=== PATIENT | female | born 1950 | race Caucasian/White ===

== ENCOUNTER 2023-09-02 13:10 | Emergency (ER) | payer OTHER, SELFPAY ==
--- NOTE | ~2023-09-02 | CT_ITS ---
EXAMINATION: CT ABDOMEN AND PELVIS WITHOUT CONTRAST CLINICAL INFORMATION: Right hip/pelvic pain. Fall. Rule out fracture. COMPARISON: None available. TECHNIQUE: Multidetector volumetric imaging was performed from the superior aspect of the liver through the pubic symphysis. Sagittal and coronal reformatted images were obtained on the technologist's workstation. This CT examination was performed using dose optimization techniques as appropriate, variously including the following: *Automated exposure control *Adjustment of mA and/or kV according to patient size (this includes techniques or standardized protocols for targeted exams where dose is matched to indication/reason for exam; i.e. extremities or head) *Use of iterative reconstruction technique DLP: 368 mGy-cm FINDINGS: LUNG BASES: The visualized lung bases are unremarkable. LIVER, GALLBLADDER, AND BILIARY TREE: The liver is normal in size, shape, and attenuation. Innumerable small low-attenuation liver lesions probably representing small cysts for biliary hamartomas 3 No biliary ductal dilatation is present. The gallbladder is unremarkable with no evidence of radiopaque gallstones, gallbladder wall thickening, or obvious pericholecystic inflammatory changes. PANCREAS: Unremarkable. SPLEEN: Unremarkable. ADRENAL GLANDS: Unremarkable. KIDNEYS AND URETERS: The kidneys are normal in size, shape, and attenuation. No hydronephrosis, hydroureter, or calculi seen. No perinephric stranding. BLADDER: Unremarkable. GASTROINTESTINAL TRACT: There is question of wall thickening of the terminal ileum. Small and large bowel is otherwise The appendix is unremarkable. ABDOMINAL WALL: No significant hernia is appreciated. LYMPH NODES: Small, small bowel nodes in the right lower quadrant. No enlarged lymph nodes. VASCULAR: Atherosclerotic disease. PELVIC VISCERA: Unremarkable. OSSEOUS STRUCTURES: No fracture. There is sacralization of the right L5 transverse process. There are degenerative changes of the spine. CT/CT abdomen pelvis wo IV con IMPRESSION: No kidney stone or hydronephrosis. Question wall thickening of the terminal ileum. Innumerable low-attenuation subcentimeter liver lesions probably representing cysts or biliary hamartomas. No pelvic or hip fracture. Fleischner guidelines were followed.
--- NOTE | ~2023-09-02 | US_ITS ---
EXAMINATION: US VENOUS ULTRASOUND WITH DOPPLER LOWER EXTREMITY, RIGHT CLINICAL INFORMATION: Swelling COMPARISON: None available. TECHNIQUE: Ultrasound of the deep veins is performed from the hip to the calf with compression sonography and color and pulse Doppler assessment. Spectral analysis with color-flow imaging is performed. FINDINGS: There is normal venous compression and respiratory variation and augmented flow. The visualized common femoral vein, superficial femoral vein, profunda femoral vein, popliteal vein, and the trifurcation region shows no evidence of deep venous thrombosis. There is no significant popliteal fossa cyst. US/US venous duplex LE RT IMPRESSION: No DVT demonstrated in the right lower extremity.
[2023-09-02 13:27] VITALS: BP 184/87; PULSE 86; RESP 16; TEMP 36.8; O2SAT 96; BMI 25.4
--- NOTE | 2023-09-02 13:37 | ED.GENADULT ---
HPI - General Adult General Chief complaint: Extremity Injury, Lower Stated complaint: Hip pain - fall on 08/22/23 Time Seen by Provider: 09/02/23 15:38 Source: patient Mode of arrival: ambulatory Limitations: no limitations History of Present Illness HPI narrative: 72 year old female with no significant pmhx presents to the ED today for evaluation of right hip pain/ discomfort s/p trip and fall 10 days ago. Reports ambulating from her couch over to her window and tripping on her 3 lb dumbbells, causing her to fall to her right side into the wall. Denies head strike or LOC. She was able to stand and ambulate without difficulty or pain. 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 Pain is located to the right lateral hip and extends down the right thigh to her right knee. This is exacerbated with bearing weight on her right leg. She has been alternating Tylenol and ibuprofen with temporary relief of pain. Has also been icing the right hip which helps. Not on AC. Denies fever, chills, nausea/vomiting, abdominal pain, dysuria, hematuria, flank pain, numbness/tingling/weakness down extremities, saddle anesthesia, bowel or bladder incontinence or retention, or back pain. Related Data Previous Rx's Medication Instructions Recorded baclofen 5 mg tablet 5 mg PO BEDTIME PRN muscle spasm 09/02/23 #10 tabs lidocaine 5 % topical patch 1 patch topical DAILY #15 ea 09/02/23 (Lidoderm) naproxen 500 mg tablet 500 mg PO Q8-12H PRN pain (scale 09/02/23 score 4-6) #14 tabs Allergies Allergy/AdvReac Type Severity Reaction Status Date / Time Penicillins Allergy Unknown Verified 09/02/23 13:35 Review of Systems Review of Systems: Constitutional: No fever, chills, fatigue, night sweats, weight changes ENT/Mouth: No ear pain, hearing loss, nasal congestion, sinus pain, rhinorrhea, sore throat Eyes: No eye pain, swelling, redness, vision changes, discharge Cardio: No chest pain, palpitations, SEARS, orthopnea, peripheral edema Pulm: No SOB, cough, sputum, wheezing, dyspnea, hemoptysis GI: No nausea, vomiting, hematemesis, abdominal pain, diarrhea, constipation, hematochezia, melena : No irregular bleeding, dysuria, frequency, urgency, hesitancy, hematuria, flank pain, urinary flow changes, urinary incontinence or retention MSK: +right hip pain, No back pain, neck pain, joint pain, myalgias Skin: No lesions, rashes Neuro: No weakness, numbness, paresthesias, LOC, dizziness, headache All other systems reviewed and are negative. [facility] Past Medical History Attestation statement: The following information was validated with the patient. Source: old records reviewed and nursing notes reviewed Social History Social History Smoked in Last 30 Days: Yes Use of substances other than those prescribed or required for medical reasons: No Advance Directives: No Advance Directives Information Provided: No Physical Exam ED Vital Signs: Vital Signs - 24 hr 09/02/23 13:27 09/02/23 14:44 Temperature 98.3 F Pulse Rate 86 75 Respiratory Rate 16 12 Blood Pressure 184/87 H 189/84 H Pulse Oximetry 96 Oxygen Delivery Method Room Air BMI result Body Mass Index 25.4 Patient hypertensive, vitals otherwise wnl Const General: cooperative, healthy appearing, comfortable, no acute distress, alert, awake and Physically active Orientation/consciousness: patient oriented x3 HENMT Head: Yes normal to inspection, Yes normocephalic and Yes atraumatic Eyes General: appearance normal, both eyes and all related structures Conjunctivae: conjunctivae normal Sclerae: sclerae normal Pupils: Equal, round and reactive pupils present EOM: EOMs intact bilaterally Neck Neck: Yes normal visual inspection and Yes full ROM Resp Effort & Inspection: normal respiratory effort and symmetric chest movement Auscultation: clear to auscultation bilaterally Cardio Other: 2+ popliteal, DP/PT pulses b/l Rate: regular rate Rhythm: regular rhythm GI Inspection: Yes normal to inspection Palpation (GI): Soft to palpation and nontender General: Yes no CVA tenderness Back/Spine/Pelvis Other: + Ambulating with antalgic gait. Intact ROM to right hip with pain on passive extension. No palpable deformity or pain over the right ASIS, sciatic notch or pubic symphisis. negative straight leg raise. Back: no CVA tenderness Skin General skin exam: no rashes or lesions noted Neuro Other: No saddle anesthesia.?Sensation intact to light touch.? Neurovascular intact distally.? General: patient oriented x3 and gait normal Cranial nerves: Yes Equal, round and reactive pupils present Gait exam (Neuro): Normal gait present Extrem General: Yes normal to inspection, Yes full ROM, Yes no clubbing, cyanosis or edema and Yes no calf tenderness Course Course Course Narrative: RME: 72-year-old female presents to ED for right hip pelvic pain since fall on the 22 of August. Patient has been using ice to help with the pain. Patient able to walk but with pain. Patient states right hip pelvic pain radiating down right thigh. Patient denies any blue black discoloration, thigh swelling, redness, calf pain, chest pain, or shortness of breath. Patient denies any genitourinary symptoms. Patient states for abdominal CT scan dry to check for hip fracture kidney stones, pubic rami fracture. Ultrasound right lower extremity ordered to make sure no blood clot. UA ordered. Reevaluation(s) Reevaluation #1: 1800-- Venous duplex of RLE does not demonstrate acute clot. CT abd/pelvis is negative for acute hip fracture or dislocation. It does not demonstrate hydro or nephrolithiasis. It does show some wall thickening of the terminal ileum however patient does not complain of abdominal pain or bowel/bladder symptoms. Abd is NT/ND. I do not suspect abdominal pathology such as IBS, IBD, etc. Additionally CT shows possibly billary cysts vs hamartomas > informed patient of results and advised to f/u with PCP regarding these findings. UA showing small amount of blood which may be indicative of possible passage of renal stone. UA negative for infection. >> On re-evaluation of patient, she reports significant improvement in pain with baclofen, toradol and lido patch. She has been ambulating to the bathroom with steady gait and decreased pain on weight bearing. Informed her of work up results. Pain is likely muscular in nature. Will send scripts to pharmacy for pain and advised her to follow up with pcp. Discussed worrisome signs and symptoms and when to return to the ED. All questions answered at this t sandra.Patient has remained stable throughout ED visit today. Patient is agreeable with disposition and stable for discharge. Medications Administered Discontinued Medications Generic Name Dose Route Start Last Admin Trade Name Freq PRN Reason Stop Dose Admin Baclofen 10 mg 09/02/23 16:38 09/02/23 16:47 Baclofen 10 Mg Tablet PO 09/02/23 16:39 10 mg ONCE ONE Administration Ketorolac Tromethamine 30 mg 09/02/23 16:38 09/02/23 16:47 Ketorolac Tromethamine 30 Mg/Ml Vial IM 09/02/23 16:39 30 mg ONCE ONE Administration Lidocaine 1 patch 09/02/23 16:38 09/02/23 16:46 Lidocaine 4 % Patch Adh..Patch TRANSDERMA 09/02/23 16:39 1 patch ONCE ONE Administration Protocol Medical Decision Making Medical Decision Making [facility] Narrative: 72 year old female with no significant pmhx presents to the ED today for evaluation of right hip pain/ discomfort s/p trip and fall 10 days ago. Patient hypertensive, otherwise wnl. Patient is nontoxic appearing and in NAD. Ambulating with antalgic gait. Intact ROM to right hip with pain on passive extension. No palpable deformity or pain over the right ASIS, sciatic notch or pubic symphisis. NV intact distally. Concern for msk sprain/ strain, sciatica. Unlikely fracture, dislocation, disc herniation, cord compression, cauda equina, Guillain-Dillwyn, epidural abscess, NV compromise, compartment syndrome, threat to limb. Plan for imaging and pain control. Differential Diagnosis Differential Diagnoses: The differential diagnosis associated with the presentation includes as above Admission/Observation Not indicated. Lab Data [facility] Lab Attestation statement: I reviewed the patient's lab results. as above Labs: Lab Results 09/02/23 Range/Units 14:46 Urine Color Yellow Urine Appearance Clear Urine pH 5.5 (5.0-9.0) Ur Specific Thayer 1.010 (1.005-1.025) Urine Protein Negative (Neg-Trace) mg/dL Urine Glucose (UA) Negative (Negative) mg/dL Urine Ketones Negative (Negative) mg/dL Urine Blood Small (1+) H (Negative) Urine Nitrite Negative (Negative) Ur Leukocyte Esterase Trace H (Negative) Urine RBC 0-2 (0-2) /HPF Urine WBC 0-5 (0-5) /HPF Ur Squamous Epith Cells 3-5 (0-2) /HPF Urine Bacteria None Seen (None Seen) Hyaline Casts 0-2 (0-2) /LPF Independent Interpretation I performed an independent interpretation of an: Ultrasound and CT Scan Interpretation: I have personally reviewed CT abdomen/pelvis and agree with radiologist's interpretation. I have personally reviewed venous duplex US RT LE and agree with radiologist's interpretation. Radiology Impression Discussion of test interpretation with radiology: I have reviewed the radiologist's reading. Radiologist Impression: US venous duplex LE RT IMPRESSION: No DVT demonstrated in the right lower extremity. CT abdomen pelvis wo IV con IMPRESSION: No kidney stone or hydronephrosis. Question wall thickening of the terminal ileum. Innumerable low-attenuation subcentimeter liver lesions probably representing cysts or biliary hamartomas. No pelvic or hip fracture. Fleischner guidelines were followed. External Record Review External record reviewed: Inpatient record Prescription Management I considered prescription management with: Pain Medication and Other (Muscle relaxer, steroid) Social Determinants Patient?s care significantly limited by Social Determinants of Health including: Other Social Determinant of Health Discharge Plan Discharge Clinical Impression: Acute pain of right hip, Strain of right hip Patient Disposition: Home, Self-Care Instructions: Arthralgia (ED), Hip Pain (ED) Additional Instructions: Your imaging studies today do not show acute fracture or dislocation. The ultrasound of your right lower extremity does not demonstrate clot. Your urine was negative for infection. Your pain is likely musculoskeletal as it improved with medications today. Please rest the leg. Use ice several times per day for 20 minutes at a time for the next 48 hours and then change to heat. Baclofen is a muscle relaxer. Take this at night as it makes you drowsy. Do not drive, drink alcohol, or operate machinery while taking it. Naproxen is an anti-inflammatory / pain medication. Take with food. Do not take this with Ibuprofen. Lidoderm patches are numbing patches. Apply to painful areas. In addition you may take Tylenol at home. Follow up with your primary care provider as needed If your pain worsens, if you develop new numbness, tingling, weakness, loss of bowel or bladder function call 911 or return to the ER immediately for evaluation. Prescriptions: New baclofen 5 mg tablet 5 mg PO BEDTIME PRN (Reason: muscle spasm) Qty: 10 0RF lidocaine [Lidoderm] 5 % adhesive patch,medicated 1 patch topical DAILY Qty: 15 0RF Rx Instructions: leave on most painful area for up to 12 hrs naproxen 500 mg tablet 500 mg PO Q8-12H PRN (Reason: pain (scale score 4-6)) Qty: 14 0RF Stand Alone Forms: Work/School Release Interventions: ED Discharge Assessment Last Done: 09/02/23 18:18 Discharge Date/Time: 09/02/23 18:18
[2023-09-02 14:44] VITALS: BP 189/84; PULSE 75; RESP 12
[2023-09-02 14:54] LABS: Appearance Urine Clear; Color Urine Yellow; Glucose Urine UA Negative (Negative); Leukocyte Esterase Urine Trace (Negative); Nitrite Urine Negative (Negative); PH 5.5 (5.0-9.0); UMIC TRIGGER UACC YES; Urine Blood Small (1+) (Negative); Urine Ketones Negative (Negative); Urine Protein Negative (Neg-Trace)
[2023-09-02 15:08] LABS: Bacteria Urine None Seen (None Seen); Hyaline Casts Urine 0-2 /LPF (0-2); RBC Urine 0-2 /HPF (0-2); WBC Urine 0-5 /HPF (0-5)
[2023-09-02] MEDS: Lidocaine 4 % Patch ADH..PATCH 1 PATCH TRANSDERMA (16:46)
[2023-09-02] MEDS: Baclofen 10 MG TABLET PO (16:47)
[2023-09-02] MEDS: Ketorolac Tromethamine 30 MG/ML VIAL IM (16:47)
== END 2023-09-02 18:18 | disposition home or self-care (01) ==
PROVIDERS: Physician Assistant; Emergency Provider Internal Medicine
DX: M25.551 Pain in right hip (principal); R60.0 Localized edema; R10.2 Pelvic and perineal pain
CPT/HCPCS: 74176; 81001; 81003; 93971; 96372; 99284; J1885

== ENCOUNTER 2024-02-01 08:16 | Outpatient (AMB) | payer OTHER, SELFPAY ==
[2024-02-01 08:30] VITALS: BP 104/60; PULSE 61; O2SAT 98; BMI 25.0
--- NOTE | 2024-02-01 08:30 | A.OFFPC_ITS ---
Vital Signs 02/01/24 08:30 Height 5 ft 2.5 in Weight 139 lb BMI 25.0 BP 104/60 Blood Pressure Location Lt brachial Position Sitting Pulse 61 Pulse Source Pulse Oximeter Pulse Oximetry (%) 98 Oxygen Delivery Method Room Air Intake Visit Reasons: Establish Care Intake Note: Patient is here to establish care. Patient was seen at [facility] in July- records printed. Patient reports she has been on medical leave and is looking forward to going back to work. Patient reports she is also taking calcium with vitamin D and magnesium. Patient will call later with dosing. Patient reports she has not seen a PCP in quite a while. 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 Accompanied by: Self / Same As Patient Allergies Penicillins Allergy (Verified 02/01/24 08:37) Unknown Medication List - Last Reconciled 02/01/24 by Lexii Mitchell MD cholecalciferol (vitamin D3) 500 mcg PO DAILY minocycline 50 mg PO DAILY Tobacco use date assessed: 02/01/24 Fall risk assessment: 1 Fall in past year Last assessed Fall Risk: 02/01/24 Dental Screening Dental Screen Date: 02/01/24 Did you have a dental visit in the last 12 months?: Yes Did you have a dental problem in the last 6 months where you did not have access to dental care?: No Was dental information given to patient?: Patient has dentist HPI HPI Comments History of Present Illness Details 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 follows neos. Doing well with PT Colonoscopy-Last 15 years ago. Declines Mammogram-Last 15 years ago. 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 Stopped after her last kid (>30 years ago) Eye -Dr Mtz. Had a clogged tear duct. Patient is scheduled for bilateral cataract surgery. Has used minocycline for blepharitis Derm-Follows with [facility]. Will be going to [facility] for Mohs ROS CONSTITUTIONAL: Denies weight loss, fever and chills. HEENT: Denies changes in vision and hearing. RESPIRATORY: Denies SOB and cough. CV: Denies palpitations and CP GI: Denies abdominal pain, nausea, vomiting and diarrhea. : Denies dysuria and urinary frequency. MSK: Denies new myalgia and joint pain. SKIN: Denies rash and pruritus. NEUROLOGICAL: Denies headache PSYCHIATRIC: Denies recent changes in mood. PHYSICAL EXAM: GENERAL: Alert and oriented x 3. NAD EYES: EOMI. Anicteric. HENT: Moist mucous membranes. No scleral icterus. No cervical lymphadenopathy. LUNGS: Clear to auscultation bilaterally. CARDIOVASCULAR: Regular rate and rhythm. No murmur. No JVD. ABDOMEN: Soft, non-tender +bs EXTREMITIES: No edema. Non-tender. SKIN: No rashes or lesions. Warm. NEUROLOGIC: No focal neurological deficits. CN II-XII grossly intact PSYCHIATRIC: Cooperative. Appropriate mood and affect [facility] Medical History (Updated 02/01/24 @ 09:16 by Lexii Mitchell MD) Skin cancer Rosacea Fracture of femoral neck, right, closed Surgical History (Updated 02/01/24 @ 08:53 by Evelia Easley CMA) No pertinent past surgical history Family History (Updated 02/01/24 @ 08:55 by Evelia Easley CMA) Mother Asthma Other No family history of alcoholism Social History (Updated 02/01/24 @ 08:47 by Evelia Easley CMA) Household Members: None Housing: House 75 years or older and lives alone: No Alcohol intake: never Patient Tobacco Use Status: Former Tobacco user (Recently quit in , then restarted in October, then stopped again November.) Tobacco use type: Cigarette e-Cigarette/Vaping Use: Never Used service: No Current occupational status: employed 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 1. Little interest or pleasure in doing things: not at all 2. Feeling down, depressed, or hopeless: not at all 3. Trouble falling or staying asleep, or sleeping too much: not at all 4. Feeling tired or having little energy: not at all 5. Poor appetite or overeating: not at all 6. Feeling bad about yourself - or that you are a failure or have let yourself or your family down: not at all 7. Trouble concentrating on things, such as reading the newspaper or watching television: not at all 8. Moving or speaking so slowly that other people could have noticed. Or the opposite - being so fidgety or restless that you have been moving around a lot more than usual: not at all 9. Thoughts that you would be better off or of hurting yourself in some way: not at all Total score: 0 Depression Screening Interpretation: Negative (NEG) Depression Screening Done: Yes 48925 - PHQ-9 Billing: Yes Source: Developed by Drs. Richard Valadez, Tiana Starkey, Deangelo Sky and colleagues, with an educational bryan from [employer]. Thrive Questionnaire Date Thrive assessed: 02/01/24 I am a: Patient What is your living situation today?: I have a steady place to live Within the past 12 months, did the food you bought not last and you didn't have the money to get more?: Never true Within the past 12 months, did you worry whether your food would run out before you got money to buy more?: Never true Do you have trouble paying for medicines?: No Do you have trouble getting transportation to medical appointments?: No Do you have trouble paying your heating and electricity bill?: No Do you have trouble taking care of your child, family member or friend?: No Do you have trouble with day-to-day activities such as bathing, preparing meals, shopping, managing finances, etc.?: No Are you currently unemployed and looking for a job?: No Are you interested in more education?: No Please select the resources that you would like help with: None Currently or been in a relationship where the following occur: No concerns reported THRIVE Score: 0 AUDIT C Alcohol Use Questionnaire (AUDIT-C) 1. How often do you have a drink containing alcohol?: Never 3. How often do you have six or more drinks on one occasion?: Never Total Score: 0 CRISTO-7 AMB Questionnaire CRISTO-7 Date CRISTO - 7 assessed: 02/01/24 Feeling nervous, anxious, or on edge: 1 = Several days Not being able to stop or control worryin = Not at all Worrying too much about different things: 1 = Several days Trouble relaxin = Several days Being so restless that it is hard to sit still: 0 = Not at all Becoming easily annoyed or irritable: 0 = Not at all Feeling afraid as if something awful might happen: 0 = Not at all Total CRISTO-7 score (0-4 normal; 5-9 mild; 10-14 moderate; 15-21 severe): 3 Source: Developed by Drs. Richard Valadez, Tiana Starkey, Deangelo Sky and colleagues, with an educational bryan from [employer]. CRISTO-7 Assessment Billing CRISTO-7 Assessment Tool: CRISTO-7 Assessment 61323 Physical exam (Primary Care) Vital Signs: Last Vital Signs Pulse 61 02/01/24 08:30 BP 104/60 02/01/24 08:30 Pulse Ox 98 02/01/24 08:30 Oxygen Delivery Method Room Air 02/01/24 08:30 BMI result Body Mass Index 25.0 Tobacco/Smoking Status: Tobacco use Status Tobacco use date assessed 02/01/24 02/01/24 08:49 Patient Tobacco Use Status Former Tobacco user ( 02/01/24 08:49 [facility] then restarted in October, then stopped again November.) Tobacco use type Cigarette 02/01/24 08:49 e-Cigarette/Vaping Use Never Used 02/01/24 08:49 PHQ-9: PHQ-9 Score PHQ-9: Total score 0 02/01/24 08:55 Depression Screening Interpretation: Negative (NEG) Thrive Assessment: Date of Thrive Assessment Date Thrive assessed 02/01/24 02/01/24 08:53 Currently or been in a relationship where the following occur: No concerns reported Assessment and Plan Assessment & Plan (1) History of skin cancer: Code(s): Z85.828 - Personal history of other malignant neoplasm of skin (2) Fracture of femoral neck, right, closed: Code(s): S72.001A - Fracture of unspecified part of neck of right femur, initial encounter for closed fracture Qualifiers: Encounter type: sequela Qualified Code(s): S72.001S - Fracture of unspecified part of neck of right femur, sequela (3) Encounter to establish care: Code(s): Z76.89 - Persons encountering health services in other specified circumstances Plan: 73 y/o to establish care. past medical, surgical social and family history reviewed. labs ordered. Declines mammo, colon cancer screening Orders: Orders Complete Blood Count Auto Diff Today S72.001A - Fracture of unspecified part of neck of right femur, initial encounter for closed fracture, Z13.0 - Encounter for screening for diseases of the blood and blood-forming organs and certain disorders involving the immune mechanism, Z13.220 - Encounter for screening for lipoid disorders, Z13.228 - Encounter for screening for other metabolic disorders Comprehensive Met. Panel Today S72.001A - Fracture of unspecified part of neck of right femur, initial encounter for closed fracture, Z13.0 - Encounter for screening for diseases of the blood and blood-forming organs and certain disorders involving the immune mechanism, Z13.220 - Encounter for screening for lipoid disorders, Z13.228 - Encounter for screening for other metabolic disorders Vitamin D 1,25 dihydroxy Today S72.001A - Fracture of unspecified part of neck of right femur, initial encounter for closed fracture, Z13.0 - Encounter for screening for diseases of the blood and blood-forming organs and certain disorders involving the immune mechanism, Z13.220 - Encounter for screening for lipoid disorders, Z13.228 - Encounter for screening for other metabolic disorders Lipid Panel Today S72.001A - Fracture of unspecified part of neck of right femur, initial encounter for closed fracture, Z13.0 - Encounter for screening for diseases of the blood and blood-forming organs and certain disorders involving the immune mechanism, Z13.220 - Encounter for screening for lipoid disorders, Z13.228 - Encounter for screening for other metabolic disorders Medications: Discontinued naproxen Discontinued Reason: Patient no longer taking 500 mg PO Q8-12H PRN 14 tabs 0RF pain (scale score 4-6) baclofen Discontinued Reason: Patient no longer taking 5 mg PO BEDTIME PRN 10 tabs 0RF muscle spasm lidocaine 5% (Lidoderm) leave on most painful area for up to 12 hrs Discontinued Reason: Patient no longer taking 1 patch topical DAILY 15 ea 0RF Coding Level of Care Code Tele New Pt Level 4 (62750) Diagnoses History of skin cancer Z85.828 Closed fracture of neck of right femur, sequela S72.001S Encounter type: sequela Encounter to establish care Z76.89 Additional Codes CRISTO-7 Assessment Billing - CRISTO-7 Assessment Tool: CRISTO-7 Assessment 79553 ([id number])
== END 2024-02-01 09:16 | disposition home or self-care (01) ==
PROVIDERS: PCP Internal Medicine; Visit Provider Internal Medicine
DX: S72.001S Fracture of unspecified part of neck of right femur, sequela (principal); Z85.828 Personal history of other malignant neoplasm of skin; Z76.89 Persons encountering health services in other specified circumstances
CPT/HCPCS: 99204

== ENCOUNTER 2024-02-01 09:20 | Outpatient (REF) | payer OTHER, SELFPAY ==
[2024-02-01 11:18] LABS: MANUAL DIFF FLAG NO
[2024-02-01 11:30] LABS: Basophils Absolute Auto 0.1 X10*3/uL (0.0-0.2); Basophils Percent Auto 0.9 % (0-2); Eosinophils Absolute Auto 0.7 X10*3/uL (0.0-0.4); Eosinophils Percent Auto 10.1 % (0-4); Hematocrit 42.3 % (37.0-47.0); Imm Gran Abs Auto 0.03 X10*3/uL (0.00-0.03); Imm Gran Pct Auto 0.4 % (0.0-0.4); Lymphocytes Absolute Auto 1.6 X10*3/uL (1.2-4.9); Lymphocytes Percent Auto 22.9 % (20-40); Mean Corpuscular HGB Conc 33.1 g/dl (31.0-35.0); Mean Corpuscular Volume 90.8 fL (80.0-98.0); Mean Platelet Volume 9.2 fL (9.4-12.3); Monocytes Absolute Auto 0.6 X10*3/uL (0.1-1.2); Neutrophils Percent Auto 57.7 % (45-73); Platelet Count 265 X10*3/uL (160-400); Red Blood Count 4.66 X10*6/uL (4.20-5.50); Red Cell Distribution Width 12.8 % (11.0-16.0)
[2024-02-01 11:42] LABS: Alanine Aminotransferase 24 U/L (0-31); Albumin Level 3.9 g/dL (3.5-5.0); Alkaline Phosphatase 116 U/L (39-117); Anion Gap 10 (12-20); Aspartate Amino Transferase 26 U/L (5-31); Bilirubin Total 0.3 mg/dL (0.0-1.0); Blood Urea Nitrogen 13 mg/dL (9-16); Calcium 9.5 mg/dL (8.4-10.2); Carbon Dioxide 30 mmol/L (22-29); Chloride 106 mmol/L (96-108); Cholesterol 254 mg/dL (<200); Estimated Glomerular Filt Rate > 60; Glucose Random 102 mg/dL (60-115); HDL Cholesterol 53 mg/dL (>40); LDL Cholesterol Calculated 187 mg/dL (<100); Potassium 4.5 mmol/L (3.3-5.1); Sodium 141 mmol/L (135-145); Total Protein 7.2 g/dL (6.5-8.0); Triglycerides 70 mg/dL (<150)
[2024-02-06 18:43] LABS: VITAMIN D (1,25 OH) D3 36 pg/mL; Vit D (1,25-Dihydroxy) Total 36 pg/mL (18-72); Vitamin D (1,25 OH) D2 <8 pg/mL
== END 2024-02-01 09:21 | disposition home or self-care (01) ==
LOC: HO.WFDLDS 09:20
PROVIDERS: Visit Provider Internal Medicine
DX: Z13.220 Encounter for screening for lipoid disorders (principal); Z13.0 Encounter for screening for diseases of the blood and blood-forming organs and certain disorders involving the immune mechanism; S72.001A Fracture of unspecified part of neck of right femur, initial encounter for closed fracture; Z13.228 Encounter for screening for other metabolic disorders
CPT/HCPCS: 36415; 80053; 80061; 82652; 85025

== ENCOUNTER 2024-02-29 14:04 | Outpatient (AMB) | payer OTHER, SELFPAY ==
--- NOTE | 2024-02-29 14:10 | A.OFFPC_ITS ---
Vital Signs 02/29/24 14:11 Height 5 ft 2.5 in Weight 138 lb BMI 24.8 Pulse 77 Pulse Source Pulse Oximeter Pulse Oximetry (%) 98 Oxygen Delivery Method Room Air Intake Visit Reasons: Discuss results Intake Note: Patient is here to discuss lab results. 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 Declines statin therapy. Declines alternate lipid lowering therapy. MSK: history of right femoral neck fracture not requiring surgery. follows neos. Doing well with PT Colonoscopy-Last 15 years ago. Declines Mammogram-Last 15 years ago. 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 Stopped after her last kid (>30 years ago) Eye -Dr Mtz. Had a clogged tear duct. Patient is scheduled for bilateral cataract surgery. Has used minocycline for blepharitis. Started topical azithromycin for the left eye a few days ago, no significant improvement Derm-Follows with [facility]. Will be going to [facility] for Mohs ROS see HPI PHYSICAL EXAM: GENERAL: Alert and oriented x 3. NAD EYES: EOMI. Anicteric. HENT: Moist mucous membranes. Mild upper left lid swelling. Slight irritation lash line and mild conjuctival injection LUNGS: Clear to auscultation bilaterally. CARDIOVASCULAR: Regular rate and rhythm. No murmur. No JVD. ABDOMEN: Soft, non-tender +bs EXTREMITIES: No edema. Non-tender. SKIN: No rashes or lesions. Warm. NEUROLOGIC: No focal neurological deficits. CN II-XII grossly intact PSYCHIATRIC: Cooperative. Appropriate mood and affect [facility] Medical History (Updated 03/02/24 @ 18:51 by Lexii Mitchell MD) Skin cancer Rosacea Fracture of femoral neck, right, closed Surgical History (Updated 02/01/24 @ 08:53 by Evelia Easley CMA) No pertinent past surgical history Family History (Updated 02/01/24 @ 08:55 by Evelia Easley CMA) Mother Asthma Other No family history of alcoholism Social History (Updated 02/01/24 @ 08:47 by Evelia Easley CMA) Household Members: None Housing: House 75 years or older and lives alone: No Alcohol intake: never Patient Tobacco Use Status: Former Tobacco user (Recently quit in , then restarted in October, then stopped again November.) Tobacco use type: Cigarette e-Cigarette/Vaping Use: Never Used service: No Current occupational status: employed 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 iRchard Valadez, Tiana Starkey, Deangelo Sky and colleagues, with an educational bryan from [employer]. Physical exam (Primary Care) Vital Signs: Last Vital Signs Pulse 77 02/29/24 14:11 Pulse Ox 98 02/29/24 14:11 Oxygen Delivery Method Room Air 02/29/24 14:11 BMI result Body Mass Index 24.8 Tobacco/Smoking Status: Tobacco use Status Tobacco use date assessed 02/01/24 02/29/24 14:12 Patient Tobacco Use Status Former Tobacco user ( 02/29/24 14:12 Recently quit in , then restarted in October, then stopped again November.) Tobacco use type Cigarette 02/29/24 14:12 e-Cigarette/Vaping Use Never Used 02/29/24 14:12 Thrive Assessment: Date of Thrive Assessment Date Thrive assessed 02/01/24 02/29/24 14:12 Assessment and Plan Assessment & Plan (1) Hyperlipidemia: Code(s): E78.5 - Hyperlipidemia, unspecified Qualifiers: Hyperlipidemia type: mixed hyperlipidemia Qualified Code(s): E78.2 - Mixed hyperlipidemia Plan: Decreased saturated fats. Continue regular exercise. Consdier statin therapy. (2) Blepharitis: Code(s): H01.009 - Unspecified blepharitis unspecified eye, unspecified eyelid Qualifiers: Blepharitis type: unspecified type Eyelid: both upper and lower Laterality: left Qualified Code(s): H01.00B - Unspecified blepharitis left eye, upper and lower eyelids Plan: oral azithromycin sent. continue low dose minocycline Medications: New azithromycin 500 mg PO DAILY 5 tabs 0RF 5 days Coding Level of Care Code Est Pt Level 3 (25602) Diagnoses Mixed hyperlipidemia E78.2 Hyperlipidemia type: mixed hyperlipidemia Blepharitis of both upper and lower eyelid of left eye, unspecified type H01.00B Blepharitis type: unspecified type Eyelid: both upper and lower Laterality: left
[2024-02-29 14:11] VITALS: PULSE 77; O2SAT 98; BMI 24.8
== END 2024-02-29 14:38 | disposition home or self-care (01) ==
PROVIDERS: PCP Internal Medicine; Visit Provider Internal Medicine
DX: E78.2 Mixed hyperlipidemia (principal); H01.00B Unspecified blepharitis left eye, upper and lower eyelids
CPT/HCPCS: 99213